=== PATIENT | male | born 1950 | race Caucasian/White ===

== ENCOUNTER 2021-11-24 08:12 | Outpatient (CLI) | payer MEDICARE | END 2021-11-24 23:59 | disposition home or self-care (01) | LOC: LAB 08:12 | PROVIDERS: ATTEND Surgery | DX: Z01.812 Encounter for preprocedural laboratory examination (principal); Z20.822 Contact with and (suspected) exposure to COVID-19 ==

== ENCOUNTER 2021-11-26 06:20 | Day surgery (SDC) | payer MEDICARE ==
[2021-11-26 07:00] LABS: HEMATOCRIT 42.1 % (36.7-47.1); MEAN CORPUSCULAR HEMOGLOBIN 32.4 uug (23.8-33.4); MEAN CORPUSCULAR VOLUME 92.9 fL (73.0-96.2); PLATELET COUNT (AUTO) 257 K/uL (152-348)
[2021-11-26 07:34] LABS: BILIRUBIN,TOTAL 0.9 mg/dL (0.2-1.0); POTASSIUM 3.7 mmol/L (3.5-5.1); TOTAL PROTEIN, SERUM 7.1 g/dL (6.4-8.2)
[2021-11-26 07:45] LABS: *BILIRUBIN,URIN 1+ (NEGATIVE); *BLOOD, URINE 1+ (NEGATIVE); *CLARITY,URINE CLEAR (CLEAR); *COLOR,URINE YELLOW (YELLOW); *KETONES,URINE TRACE (NEGATIVE); LEUKOCYTE ESTERASE ,URINE NEGATIVE (NEGATIVE); NITRITE, URINE NEGATIVE (NEGATIVE); UGLUCOSE NEGATIVE (NEGATIVE)
[2021-11-26] MEDS ORDERED: CEFAZOLIN 2 G in IV DEXTROSE 5% 100 ML IV ONE (08:00)
[2021-11-26 08:07] LABS: BACTERIA,URINE NONE SEEN /HPF (NONE SEEN); MUCUS,URINE MODERATE /LPF (0-FEW); SQUAMOUS EPITHELIAL CELL,UR FEW /HPF (NONE SEEN); WBC,URINE 0-3 /HPF (0-3)
[2021-11-26] MEDS ORDERED: LIDOCAINE 1%-EPI 1:100,000 20 ML VIAL ONE (09:23)
[2021-11-26] MEDS ORDERED: BUPIVACAINE PF 0.5% 30 ML VIAL ONE (09:24)
[2021-11-26] MEDS ORDERED: HYDROMORPHONE 2 MG/1 ML DISP.SYRIN ONE (09:36)
[2021-11-26] MEDS ORDERED: FAMOTIDINE. 20 MG/2 ML VIAL IV ONE (09:36)
[2021-11-26] MEDS ORDERED: ROCURONIUM BROMIDE 50 MG/5 ML VIAL ONE (11:10)
[2021-11-26] MEDS ORDERED: HYDROMORPHONE 1 MG/1 ML DISP.SYRIN ONE (12:10)
[2021-11-26] MEDS ORDERED: PROPOFOL 200 MG/20 ML BOTTLE ONE ×2 (13:00)
[2021-11-26] MEDS ORDERED: GLYCOPYRROLATE 0.2 MG/ML VIAL ONE ×3 (13:00)
[2021-11-26] MEDS ORDERED: KETOROLAC TROMETHAMINE 30 MG INJ ONE (13:00)
[2021-11-26] MEDS ORDERED: NEOSTIGMINE METHYLSULFATE 10 MG/10 ML VIAL ONE (13:00)
[2021-11-26] MEDS ORDERED: LIDOCAINE-MPF 2% 5 ML VIAL ONE (13:00)
[2021-11-26] MEDS ORDERED: ONDANSETRON 4 MG/2 ML VIAL ONE (13:00)
[2021-11-26] MEDS ORDERED: DEXAMETHASONE SOD PHOSPHATE 4 MG INJ ONE (13:00)
[2021-11-26] MEDS ORDERED: ACETAMINOPHEN 325 MG TABLET ONE (13:08)
[2021-11-26] MEDS ORDERED: GABAPENTIN 300 MG CAPSULE ONE (13:30)
[2021-11-26] MEDS ORDERED: IBUPROFEN 800 MG TABLET ONE (13:30)
== END 2021-11-26 15:25 | disposition home or self-care (01) ==
LOC: DS 06:20
PROVIDERS: ATTEND Surgery
DX: K40.20 Bilateral inguinal hernia, without obstruction or gangrene, not specified as recurrent (principal); N40.0 Benign prostatic hyperplasia without lower urinary tract symptoms; K21.9 Gastro-esophageal reflux disease without esophagitis; Z87.891 Personal history of nicotine dependence; Z79.899 Other long term (current) drug therapy; Z98.890 Other specified postprocedural states; Z72.89 Other problems related to lifestyle
CPT/HCPCS: 36415; 49505; 71045; 80053; 81001; 85025; 85730; 93005; J0690; J1100; J1170 ×2; J1885; J2405; J3490 ×8; J7120; A4649; A4663